=== PATIENT | male | born 1940 | race Caucasian/White ===

== ENCOUNTER 2021-07-25 11:50 | Inpatient (IN) ==
[2021-07-25 13:06] LABS: ABS Eosinophils 0.1 10^3/ul (0-0.6); ABS Lymphocytes 0.4 10^3/ul (1.0-4.8); ABS Monocytes 0.7 10^3/ul (0-0.8); ABS Neutrophils 4.5 10^3/ul (1.5-7.7); Eosinophil % 2.2 %; Hematocrit 27 % (42-52); Hemoglobin 9.1 g/dL (14.0-18.0); Lymphocyte % 6.2 %; Mean Corpuscular HGB Conc 34 g/dL (31-36); Mean Corpuscular Hemoglobin 33 pg (27-31); Mean Corpuscular Volume 98 fL (80-94); Mean Platelet Volume 7.1 fL (7.4-10.4); Platelet Count 169 10^3/uL (150-450); Red Blood Count 2.72 10^6 /uL (4.18-5.48); Red Cell Distribution Width 15 % (10-15); White Blood Count 5.7 10^3/uL (3.5-10.8)
[2021-07-25 13:18] LABS: Activated Partial Thrombo Time 39.3 seconds (26.0-38.0); INR 1.4 (0.86-1.15)
[2021-07-25 13:21] LABS: ALT 13 U/L (7-52); AST 17 U/L (13-39); Albumin 3.1 g/dL (3.2-5.2); Albumin/Globulin Ratio 0.9 (1-3); Alkaline Phosphatase 48 U/L (35-149); Anion Gap 10 mmol/L (2-11); Blood Urea Nitrogen 19 mg/dL (6-24); C Reactive Protein 56.98 mg/L (<8.01); CO2 Carbon Dioxide 19 mmol/L (22-32); Chloride 107 mmol/L (101-111); Globulin 3.3 g/dL (2-4); Glucose 117 mg/dL (70-100); Potassium 4.3 mmol/L (3.5-5.0); Sodium 136 mmol/L (135-145); Total Protein 6.4 g/dL (6.4-8.9); eGFR CKD-EPI 48.6 (>60)
[2021-07-25 13:23] LABS: Troponin I 0.03 ng/mL (<0.03)
[2021-07-25] MEDS ORDERED: Vancomycin 1,000 MG in NS 0.9% 250 ml 250 ML IVPB ONE (16:13)
[2021-07-25] MEDS ORDERED: Morphine 2 MG/ML SYRINGE IV PRN (16:16)
[2021-07-25] MEDS ORDERED: Iodixanol (CONTRAST) 320 MG/ML 100 ML SDV IV ONE (16:24)
[2021-07-25] MEDS ORDERED: Albuterol HFA INHALER 8 gm MDI INH PRN (18:23)
[2021-07-25 18:44] LABS: Rapid COVID-19 Molecular Undetected (Undetected)
[2021-07-25] MEDS ORDERED: NS 0.9% IV SCH (21:00)
[2021-07-25] MEDS ORDERED: NAFCILLIN IV SCH (21:00)
[2021-07-25] MEDS: Mometasone/Formoter 200/5 MDI INH SCH (21:32)
[2021-07-25] MEDS: CMCS:Ranolazine 500 mg TAB ER (NF) PO SCH (22:50)
[2021-07-25] MEDS: DULoxetine DR 20 mg CAP PO SCH (22:50)
[2021-07-25] MEDS: NS 0.9% IV SCH (22:53)
[2021-07-25] MEDS: NAFCILLIN IV SCH (22:53)
[2021-07-26 00:01] LABS: Urine Appearance Clear; Urine Bilirubin Negative (Negative); Urine Blood Negative (Negative); Urine Color Yellow; Urine Glucose Negative (Negative); Urine Ketones Negative (Negative); Urine Nitrite Negative (Negative); Urine Protein Negative (Negative); Urine Specific Gravity 1.031 (1.002-1.030); Urine Urobilinogen Negative (Negative)
[2021-07-26] MEDS: NAFCILLIN IV SCH ×5 (05:01→20:27)
[2021-07-26] MEDS: NS 0.9% IV SCH ×5 (05:01→20:27)
[2021-07-26] MEDS: Aspirin EC 81 mg TAB.EC (enteric coated) PO SCH (09:15)
[2021-07-26] MEDS: Isosorbide Mononit ER 30mg TAB PO SCH (09:16)
[2021-07-26] MEDS: CMCS:Ranolazine 500 mg TAB ER (NF) PO SCH ×2 (09:17→22:35)
[2021-07-26] MEDS: Mometasone/Formoter 200/5 MDI INH SCH ×2 (09:18→19:56)
[2021-07-26] MEDS: SPIRIVA Respimat (tiotropium) 2.5 mcg/inh Inhaler INH SCH (09:21)
[2021-07-26 09:24] LABS: ABS Eosinophils 0.1 10^3/ul (0-0.6); ABS Lymphocytes 0.4 10^3/ul (1.0-4.8); ABS Monocytes 0.7 10^3/ul (0-0.8); ABS Neutrophils 4.4 10^3/ul (1.5-7.7); Eosinophil % 1.8 %; Hematocrit 28 % (42-52); Hemoglobin 9.4 g/dL (14.0-18.0); Lymphocyte % 7.5 %; Mean Corpuscular HGB Conc 34 g/dL (31-36); Mean Corpuscular Hemoglobin 33 pg (27-31); Mean Corpuscular Volume 97 fL (80-94); Mean Platelet Volume 7.3 fL (7.4-10.4); Platelet Count 158 10^3/uL (150-450); Red Blood Count 2.87 10^6 /uL (4.18-5.48); Red Cell Distribution Width 15 % (10-15); White Blood Count 5.7 10^3/uL (3.5-10.8)
[2021-07-26 09:40] LABS: C Reactive Protein 56.65 mg/L (<8.01); Calcium 8.8 mg/dL (8.6-10.3); Potassium 3.7 mmol/L (3.5-5.0)
[2021-07-26] MEDS: DULoxetine DR 20 mg CAP PO SCH (22:35)
[2021-07-27] MEDS: NAFCILLIN IV SCH ×7 (00:53→23:47)
[2021-07-27] MEDS: NS 0.9% IV SCH ×7 (00:53→23:47)
[2021-07-27 06:43] LABS: Hematocrit 26 % (42-52); Hemoglobin 8.6 g/dL (14.0-18.0); Mean Corpuscular HGB Conc 34 g/dL (31-36); Mean Corpuscular Hemoglobin 33 pg (27-31); Mean Corpuscular Volume 98 fL (80-94); Mean Platelet Volume 7.3 fL (7.4-10.4); Platelet Count 143 10^3/uL (150-450); Red Blood Count 2.63 10^6 /uL (4.18-5.48); Red Cell Distribution Width 15 % (10-15); White Blood Count 4.7 10^3/uL (3.5-10.8)
[2021-07-27 06:52] LABS: Calcium 8.3 mg/dL (8.6-10.3); Potassium 3.8 mmol/L (3.5-5.0)
[2021-07-27 06:57] LABS: C Reactive Protein 53.33 mg/L (<8.01); eGFR CKD-EPI 54.9 (>60)
[2021-07-27] MEDS: SPIRIVA Respimat (tiotropium) 2.5 mcg/inh Inhaler INH SCH (09:04)
[2021-07-27] MEDS: Mometasone/Formoter 200/5 MDI INH SCH ×2 (09:05→20:19)
[2021-07-27] MEDS: Aspirin EC 81 mg TAB.EC (enteric coated) PO SCH (09:36)
[2021-07-27] MEDS: HYDROcodone/ACETAMIN 5/325 mg TAB PO PRN ×2 (09:37→18:29)
[2021-07-27] MEDS: Isosorbide Mononit ER 30mg TAB PO SCH (09:37)
[2021-07-27] MEDS: CMCS:Ranolazine 500 mg TAB ER (NF) PO SCH ×2 (09:45→20:17)
[2021-07-27 10:37] LABS: Ferritin 309.5 ng/mL (24-336)
[2021-07-27 16:32] LABS: Hematocrit 27 % (42-52); Hemoglobin 8.8 g/dL (14.0-18.0)
[2021-07-27] MEDS: DULoxetine DR 20 mg CAP PO SCH (20:17)
[2021-07-28] MEDS: NAFCILLIN IV SCH ×6 (03:53→23:48)
[2021-07-28] MEDS: NS 0.9% IV SCH ×6 (03:53→23:48)
[2021-07-28] MEDS: HYDROcodone/ACETAMIN 5/325 mg TAB PO PRN ×4 (03:56→20:47)
[2021-07-28 08:07] LABS: ABS Basophils 0.1 10^3/ul (0-0.2); ABS Eosinophils 0.2 10^3/ul (0-0.6); ABS Lymphocytes 0.4 10^3/ul (1.0-4.8); ABS Monocytes 0.6 10^3/ul (0-0.8); ABS Neutrophils 3.8 10^3/ul (1.5-7.7); Eosinophil % 4.5 %; Hematocrit 26 % (42-52); Lymphocyte % 8.1 %; Mean Corpuscular HGB Conc 34 g/dL (31-36); Mean Corpuscular Hemoglobin 33 pg (27-31); Mean Corpuscular Volume 97 fL (80-94); Platelet Count 145 10^3/uL (150-450); Red Blood Count 2.72 10^6 /uL (4.18-5.48); Red Cell Distribution Width 15 % (10-15); White Blood Count 5.2 10^3/uL (3.5-10.8)
[2021-07-28] MEDS: CMCS:Ranolazine 500 mg TAB ER (NF) PO SCH ×2 (08:38→20:46)
[2021-07-28] MEDS: Isosorbide Mononit ER 30mg TAB PO SCH (08:38)
[2021-07-28] MEDS: Aspirin EC 81 mg TAB.EC (enteric coated) PO SCH (08:38)
[2021-07-28] MEDS: SPIRIVA Respimat (tiotropium) 2.5 mcg/inh Inhaler INH SCH (09:13)
[2021-07-28] MEDS: Mometasone/Formoter 200/5 MDI INH SCH ×2 (09:13→19:34)
[2021-07-28] MEDS ORDERED: Senna TAB 8.6 mg TAB PO PRN (10:19)
[2021-07-28] MEDS: Magnesium Hydroxide LIQ 30 ML UDC PO PRN (10:29)
[2021-07-28] MEDS: DULoxetine DR 20 mg CAP PO SCH (20:46)
[2021-07-29] MEDS: NS 0.9% IV SCH ×6 (03:45→23:13)
[2021-07-29] MEDS: NAFCILLIN IV SCH ×6 (03:45→23:13)
[2021-07-29] MEDS: SPIRIVA Respimat (tiotropium) 2.5 mcg/inh Inhaler INH SCH (09:20)
[2021-07-29] MEDS: Mometasone/Formoter 200/5 MDI INH SCH ×2 (09:20→19:38)
[2021-07-29] MEDS: Polyethylene Glycol 3350 17 GM PACKET PO SCH ×2 (09:23→20:33)
[2021-07-29] MEDS: Magnesium Hydroxide LIQ 30 ML UDC PO PRN (09:24)
[2021-07-29] MEDS: Aspirin EC 81 mg TAB.EC (enteric coated) PO SCH (09:25)
[2021-07-29] MEDS: Isosorbide Mononit ER 30mg TAB PO SCH (09:25)
[2021-07-29] MEDS: HYDROcodone/ACETAMIN 5/325 mg TAB PO PRN ×2 (09:26→15:05)
[2021-07-29] MEDS: CMCS:Ranolazine 500 mg TAB ER (NF) PO SCH ×2 (09:27→20:30)
[2021-07-29 13:31] LABS: Calcium 8.6 mg/dL (8.6-10.3); Potassium 3.3 mmol/L (3.5-5.0); eGFR CKD-EPI 52.5 (>60)
[2021-07-29] MEDS ORDERED: Sodium Phosphate ADULT ENEMA 133 ML BTL PR PRN (14:19)
[2021-07-29] MEDS: Lidocaine PATCH 5% PATCH TRANSDERM SCH (15:06)
[2021-07-29] MEDS: DULoxetine DR 20 mg CAP PO SCH (20:30)
[2021-07-29] MEDS ORDERED: Lidocaine Patch REMOVE NOTE PATCH OFF SCH (21:00)
[2021-07-29] MEDS ORDERED: Senna TAB 8.6 mg TAB PO SCH (21:00)
[2021-07-30] MEDS: NS 0.9% IV SCH ×3 (04:20→12:01)
[2021-07-30] MEDS: NAFCILLIN IV SCH ×3 (04:20→12:01)
[2021-07-30] MEDS: Polyethylene Glycol 3350 17 GM PACKET PO SCH (08:22)
[2021-07-30] MEDS: Aspirin EC 81 mg TAB.EC (enteric coated) PO SCH (08:30)
[2021-07-30] MEDS: CMCS:Ranolazine 500 mg TAB ER (NF) PO SCH (08:30)
[2021-07-30] MEDS: Isosorbide Mononit ER 30mg TAB PO SCH (08:30)
[2021-07-30] MEDS: Lidocaine PATCH 5% PATCH TRANSDERM SCH (08:31)
[2021-07-30] MEDS: HYDROcodone/ACETAMIN 5/325 mg TAB PO PRN (08:42)
[2021-07-30] MEDS: Mometasone/Formoter 200/5 MDI INH SCH (09:13)
[2021-07-30] MEDS: SPIRIVA Respimat (tiotropium) 2.5 mcg/inh Inhaler INH SCH (09:13)
[2021-07-30 11:25] VITALS: BP 143/50
== END 2021-07-30 13:45 | disposition home or self-care (01) | DRG 541 ==
LOC: ED 11:50 → SUATTDRO 17:47 → EDHOLD 17:47 → SSU 19:44
PROVIDERS: ADMIT Internal Medicine; ATTEND Family Medicine

== ENCOUNTER 2021-08-19 12:22 | Inpatient (IN) ==
[2021-08-19 15:20] LABS: Albumin 3.3 g/dL (3.2-5.2); Albumin/Globulin Ratio 1.2 (1-3); C Reactive Protein 51.93 mg/L (<8.01); Calcium 8.8 mg/dL (8.6-10.3); Globulin 2.8 g/dL (2-4); Potassium 3.4 mmol/L (3.5-5.0); Total Bilirubin 1.2 mg/dL (0.2-1.0); Total Protein 6.1 g/dL (6.4-8.9); eGFR CKD-EPI 32.9 (>60)
[2021-08-19 15:23] LABS: ABS Basophils 0.1 10^3/ul (0-0.2); ABS Lymphocytes 0.3 10^3/ul (1.0-4.8); ABS Monocytes 0.6 10^3/ul (0-0.8); ABS Neutrophils 4.1 10^3/ul (1.5-7.7); Eosinophil % 0.8 %; Hematocrit 30 % (42-52); Hemoglobin 9.9 g/dL (14.0-18.0); Lymphocyte % 6.2 %; Mean Corpuscular HGB Conc 33 g/dL (31-36); Mean Corpuscular Hemoglobin 33 pg (27-31); Mean Corpuscular Volume 100 fL (80-94); Mean Platelet Volume 6.6 fL (7.4-10.4); Nucleated Red Blood Cells % 0.1; Platelet Count 164 10^3/uL (150-450); Red Blood Count 2.99 10^6 /uL (4.18-5.48); Red Cell Distribution Width 18 % (10-15); White Blood Count 5.2 10^3/uL (3.5-10.8)
[2021-08-19] MEDS ORDERED: Lactated Ringers 1000 ml BAG 1,000 ML IV ONE (15:29)
[2021-08-19 18:23] LABS: Urine Appearance Clear; Urine Bilirubin Negative (Negative); Urine Blood Negative (Negative); Urine Color Amber; Urine Glucose Negative (Negative); Urine Ketones Negative (Negative); Urine Nitrite Negative (Negative); Urine Protein 2+(100 mg/dL) (Negative); Urine Specific Gravity 1.023 (1.002-1.030); Urine Urobilinogen Negative (Negative)
[2021-08-19 18:31] LABS: Urine Bacteria Absent (Absent); Urine Red Blood Cell Absent (Absent); Urine Squamous Epithelial Cell Present (Absent); Urine White Blood Cell Trace(0-5/hpf) (Absent)
[2021-08-20 02:41] LABS: PCO2 Arterial 35 mmHg (35-45)
[2021-08-20 02:50] LABS: PO2 Arterial 43 mmHg (80-100)
[2021-08-20] MEDS ORDERED: Furosemide 40 mg/4 ml IV VIAL IV ONE (02:56)
[2021-08-20] MEDS ORDERED: Albuterol HFA INHALER 8 gm MDI INH PRN (03:35)
[2021-08-20 05:32] LABS: ABS Basophils 0.1 10^3/ul (0-0.2); ABS Eosinophils 0.1 10^3/ul (0-0.6); ABS Lymphocytes 0.4 10^3/ul (1.0-4.8); ABS Monocytes 0.6 10^3/ul (0-0.8); ABS Neutrophils 3.8 10^3/ul (1.5-7.7); Eosinophil % 1.1 %; Hematocrit 32 % (42-52); Hemoglobin 10.3 g/dL (14.0-18.0); Mean Corpuscular HGB Conc 33 g/dL (31-36); Mean Corpuscular Hemoglobin 33 pg (27-31); Mean Corpuscular Volume 100 fL (80-94); Mean Platelet Volume 6.4 fL (7.4-10.4); Platelet Count 151 10^3/uL (150-450); Red Blood Count 3.15 10^6 /uL (4.18-5.48); Red Cell Distribution Width 19 % (10-15); White Blood Count 4.9 10^3/uL (3.5-10.8)
[2021-08-20 05:49] LABS: Urine Creatinine 23.47 mg/dL; Urine Microalbumin/Creatinine 157.6 (<31)
[2021-08-20 06:01] LABS: Albumin 3.2 g/dL (3.2-5.2); Calcium 8.9 mg/dL (8.6-10.3); Magnesium 2.2 mg/dL (1.9-2.7); Potassium 3.5 mmol/L (3.5-5.0); Total Bilirubin 1.4 mg/dL (0.2-1.0)
[2021-08-20 06:07] LABS: Albumin/Globulin Ratio 1.1 (1-3); Globulin 2.9 g/dL (2-4); Total Protein 6.1 g/dL (6.4-8.9); eGFR CKD-EPI 36.4 (>60)
[2021-08-20 06:23] LABS: Free T3 1.9 pg/mL (2.5-3.9)
[2021-08-20 06:25] LABS: Free T4 0.85 ng/dL (0.61-1.12)
[2021-08-20] MEDS ORDERED: NS 0.9% IV SCH ×4 (06:45→10:00)
[2021-08-20] MEDS ORDERED: NAFCILLIN IV SCH ×4 (06:45→10:00)
[2021-08-20] MEDS: Lidocaine PATCH 5% PATCH TRANSDERM SCH (07:55)
[2021-08-20] MEDS: DULoxetine DR 20 mg CAP PO SCH (07:55)
[2021-08-20] MEDS: Aspirin EC 81 mg TAB.EC (enteric coated) PO SCH (07:55)
[2021-08-20] MEDS: Mometasone/Formoter 200/5 MDI INH SCH ×2 (07:59→19:17)
[2021-08-20] MEDS: SPIRIVA Respimat (tiotropium) 2.5 mcg/inh Inhaler INH SCH (08:00)
[2021-08-20 08:42] LABS: Direct Bilirubin 0.6 mg/dL (0.03-0.18); Indirect Bilirubin 0.8 mg/dL (0.3-1.0)
[2021-08-20] MEDS ORDERED: Iodixanol (CONTRAST) 320 MG/ML 100 ML SDV IV ONE (12:06)
[2021-08-20] MEDS ORDERED: oxyCODONE/Acetamin 5/325 mg TAB PO PRN (13:14)
[2021-08-20] MEDS ORDERED: ceFAZolin 2 GM in NS PREMIX 2 GM/100 ML BAG IVPB SCH (14:00)
[2021-08-20] MEDS ORDERED: ceFAZolin 2 GM PREMIX 2 GM/50 ML BAG IVPB SCH (14:30)
[2021-08-20] MEDS: ceFAZolin 2 GM PREMIX 2 GM/50 ML BAG IVPB SCH ×2 (15:32→22:23)
[2021-08-21 04:39] LABS: ABS Eosinophils 0.1 10^3/ul (0-0.6); ABS Lymphocytes 0.4 10^3/ul (1.0-4.8); ABS Monocytes 0.8 10^3/ul (0-0.8); ABS Neutrophils 3.8 10^3/ul (1.5-7.7); Eosinophil % 1.4 %; Hematocrit 28 % (42-52); Hemoglobin 9.3 g/dL (14.0-18.0); Mean Corpuscular HGB Conc 33 g/dL (31-36); Mean Corpuscular Hemoglobin 33 pg (27-31); Mean Corpuscular Volume 100 fL (80-94); Mean Platelet Volume 6.5 fL (7.4-10.4); Platelet Count 111 10^3/uL (150-450); Red Blood Count 2.83 10^6 /uL (4.18-5.48); Red Cell Distribution Width 18 % (10-15); White Blood Count 5.1 10^3/uL (3.5-10.8)
[2021-08-21 05:09] LABS: Albumin 2.9 g/dL (3.2-5.2); Albumin/Globulin Ratio 1.2 (1-3); Calcium 8.4 mg/dL (8.6-10.3); Globulin 2.5 g/dL (2-4); Total Bilirubin 1.1 mg/dL (0.2-1.0); Total Protein 5.4 g/dL (6.4-8.9); eGFR CKD-EPI 39.9 (>60)
[2021-08-21] MEDS: ceFAZolin 2 GM PREMIX 2 GM/50 ML BAG IVPB SCH ×3 (05:57→21:46)
[2021-08-21] MEDS ORDERED: Potassium Chlor 20 meq TAB.ER PO ONE ×2 (06:26→08:27)
[2021-08-21] MEDS ORDERED: Furosemide 40 mg/4 ml IV VIAL IV SLOW PU ONE (07:00)
[2021-08-21] MEDS: DULoxetine DR 20 mg CAP PO SCH (08:35)
[2021-08-21] MEDS: Lidocaine PATCH 5% PATCH TRANSDERM SCH (08:35)
[2021-08-21] MEDS: Aspirin EC 81 mg TAB.EC (enteric coated) PO SCH (08:35)
[2021-08-21] MEDS: SPIRIVA Respimat (tiotropium) 2.5 mcg/inh Inhaler INH SCH (08:42)
[2021-08-21] MEDS: Mometasone/Formoter 200/5 MDI INH SCH ×2 (08:42→20:10)
[2021-08-21] MEDS ORDERED: Iodixanol (CONTRAST) 320 MG/ML 100 ML SDV IV ONE (14:49)
[2021-08-21] MEDS ORDERED: ceFAZolin 2 GM PREMIX 2 GM/50 ML BAG IVPB SCH (18:00)
[2021-08-22 05:02] LABS: Hematocrit 28 % (42-52); Hemoglobin 9.4 g/dL (14.0-18.0); Mean Corpuscular HGB Conc 33 g/dL (31-36); Mean Corpuscular Hemoglobin 33 pg (27-31); Mean Corpuscular Volume 98 fL (80-94); Mean Platelet Volume 6.9 fL (7.4-10.4); Platelet Count 105 10^3/uL (150-450); Red Cell Distribution Width 18 % (10-15); White Blood Count 5.7 10^3/uL (3.5-10.8)
[2021-08-22 05:27] LABS: Calcium 8.6 mg/dL (8.6-10.3); Magnesium 1.8 mg/dL (1.9-2.7); Potassium 3.4 mmol/L (3.5-5.0); eGFR CKD-EPI 47.8 (>60)
[2021-08-22] MEDS ORDERED: Furosemide 40 mg/4 ml IV VIAL IV SLOW PU ONE (06:00)
[2021-08-22] MEDS: ceFAZolin 2 GM PREMIX 2 GM/50 ML BAG IVPB SCH (06:02)
[2021-08-22] MEDS ORDERED: Magnesium Sulfate 2 gm BAG 2 GM/50 ML BAG IVPB ONE (06:40)
[2021-08-22] MEDS ORDERED: Potassium Chlor 20 meq TAB.ER PO ONE ×2 (06:41→08:40)
[2021-08-22] MEDS ORDERED: Furosemide 20 mg/2 ml IV VIAL IV SLOW PU ONE (08:59)
[2021-08-22 09:36] LABS: C Reactive Protein 55.49 mg/L (<8.01)
[2021-08-22] MEDS: Lidocaine PATCH 5% PATCH TRANSDERM SCH (09:51)
[2021-08-22] MEDS: Aspirin EC 81 mg TAB.EC (enteric coated) PO SCH (09:53)
[2021-08-22] MEDS: DULoxetine DR 20 mg CAP PO SCH (09:53)
[2021-08-22] MEDS: Mometasone/Formoter 200/5 MDI INH SCH ×2 (10:54→20:11)
[2021-08-22] MEDS: SPIRIVA Respimat (tiotropium) 2.5 mcg/inh Inhaler INH SCH (10:54)
[2021-08-22 16:23] LABS: Body Fluid Appearance Clear; Body Fluid Color Yellow; Body Fluid Source Pleural Fluid
[2021-08-22 18:26] LABS: Body Fluid Mono 30 %; Body Fluid Other Cells 26; Body Fluid Total Cells Counted 200
[2021-08-22 18:27] LABS: Body Fluid WBC 160 /mcL
[2021-08-22] MEDS ORDERED: ceFAZolin 2 GM in NS 100 MLS Q8H (Pharmacy Admix) IVPB SCH (22:00)
[2021-08-23 05:51] LABS: Hematocrit 29 % (42-52); Hemoglobin 9.4 g/dL (14.0-18.0); Mean Corpuscular HGB Conc 33 g/dL (31-36); Mean Corpuscular Hemoglobin 33 pg (27-31); Mean Corpuscular Volume 99 fL (80-94); Red Blood Count 2.89 10^6 /uL (4.18-5.48); Red Cell Distribution Width 17 % (10-15); White Blood Count 6.5 10^3/uL (3.5-10.8)
[2021-08-23 05:53] LABS: ABS Basophils 0.1 10^3/ul (0-0.2); ABS Eosinophils 0.1 10^3/ul (0-0.6); ABS Lymphocytes 0.5 10^3/ul (1.0-4.8); ABS Neutrophils 4.9 10^3/ul (1.5-7.7); Eosinophil % 2.2 %; Lymphocyte % 7.2 %
[2021-08-23 05:57] LABS: Calcium 8.6 mg/dL (8.6-10.3); Potassium 3.7 mmol/L (3.5-5.0); eGFR CKD-EPI 55.9 (>60)
[2021-08-23] MEDS ORDERED: Furosemide 40 mg/4 ml IV VIAL IV SLOW PU ONE (06:00)
[2021-08-23] MEDS ORDERED: Potassium Chlor 20 meq TAB.ER PO ONE (06:47)
[2021-08-23] MEDS: Aspirin EC 81 mg TAB.EC (enteric coated) PO SCH (07:56)
[2021-08-23] MEDS: Lidocaine PATCH 5% PATCH TRANSDERM SCH (07:56)
[2021-08-23] MEDS: DULoxetine DR 20 mg CAP PO SCH (07:56)
[2021-08-23] MEDS: SPIRIVA Respimat (tiotropium) 2.5 mcg/inh Inhaler INH SCH (08:22)
[2021-08-23] MEDS: Mometasone/Formoter 200/5 MDI INH SCH ×2 (08:25→20:30)
[2021-08-23 09:03] LABS: Platelet Count 97 10^3/uL (150-450)
[2021-08-23 09:43] LABS: INR 1.63 (0.86-1.15)
[2021-08-23 13:35] LABS: Lactate Dehydrogenase, BF 100 U/L
[2021-08-23 14:09] LABS: Folate 3.4 ng/mL (5.90-24.80)
[2021-08-23 15:56] LABS: Glucose, BF 133 mg/dL
[2021-08-23 15:59] LABS: Fluid Type, Protein, Total PLEURAL; Total Protein, BF 1.2 g/dL
[2021-08-24] MEDS ORDERED: Furosemide 40 mg/4 ml IV VIAL IV SLOW PU ONE (06:00)
[2021-08-24 06:09] LABS: ABS Basophils 0.1 10^3/ul (0-0.2); ABS Eosinophils 0.1 10^3/ul (0-0.6); ABS Lymphocytes 0.4 10^3/ul (1.0-4.8); ABS Monocytes 0.8 10^3/ul (0-0.8); ABS Neutrophils 4.7 10^3/ul (1.5-7.7); Eosinophil % 2.3 %; Hematocrit 29 % (42-52); Hemoglobin 9.8 g/dL (14.0-18.0); Lymphocyte % 6.3 %; Mean Corpuscular HGB Conc 33 g/dL (31-36); Mean Corpuscular Hemoglobin 33 pg (27-31); Mean Corpuscular Volume 98 fL (80-94); Nucleated Red Blood Cells % 0.1; Platelet Count 89 10^3/uL (150-450); Red Blood Count 2.99 10^6 /uL (4.18-5.48); Red Cell Distribution Width 18 % (10-15); White Blood Count 6.1 10^3/uL (3.5-10.8)
[2021-08-24 06:32] LABS: Calcium 8.6 mg/dL (8.6-10.3); Magnesium 1.8 mg/dL (1.9-2.7); Potassium 3.8 mmol/L (3.5-5.0); eGFR CKD-EPI 61.5 (>60)
[2021-08-24] MEDS ORDERED: Magnesium Sulfate 2 gm BAG 2 GM/50 ML BAG IVPB ONE (06:57)
[2021-08-24] MEDS: Mometasone/Formoter 200/5 MDI INH SCH ×2 (08:12→19:39)
[2021-08-24] MEDS: SPIRIVA Respimat (tiotropium) 2.5 mcg/inh Inhaler INH SCH (08:13)
[2021-08-24] MEDS: DULoxetine DR 20 mg CAP PO SCH (08:46)
[2021-08-24] MEDS: Lidocaine PATCH 5% PATCH TRANSDERM SCH (08:46)
[2021-08-24] MEDS: Aspirin EC 81 mg TAB.EC (enteric coated) PO SCH (08:47)
[2021-08-24] MEDS: Magnesium Hydroxide LIQ 30 ML UDC PO PRN (14:08)
[2021-08-24] MEDS ORDERED: NS 0.9% 1000 ml BAG 1,000 ML IV SCH (20:15)
[2021-08-24 20:47] LABS: ABS Basophils 0.1 10^3/ul (0-0.2); ABS Eosinophils 0.2 10^3/ul (0-0.6); ABS Lymphocytes 0.4 10^3/ul (1.0-4.8); ABS Monocytes 0.8 10^3/ul (0-0.8); ABS Neutrophils 4.3 10^3/ul (1.5-7.7); Hematocrit 31 % (42-52); Lymphocyte % 6.6 %; Mean Corpuscular HGB Conc 32 g/dL (31-36); Mean Corpuscular Hemoglobin 32 pg (27-31); Mean Corpuscular Volume 99 fL (80-94); Mean Platelet Volume 7.1 fL (7.4-10.4); Nucleated Red Blood Cells % 0.1; Platelet Count 97 10^3/uL (150-450); Red Blood Count 3.13 10^6 /uL (4.18-5.48); Red Cell Distribution Width 18 % (10-15); White Blood Count 5.7 10^3/uL (3.5-10.8)
[2021-08-24 20:52] LABS: Activated Partial Thrombo Time 34.9 seconds (26.0-38.0); INR 1.34 (0.86-1.15)
[2021-08-24] MEDS: Senna TAB 8.6 mg TAB PO PRN (20:53)
[2021-08-24 21:09] LABS: Urine Appearance Clear; Urine Bacteria Absent (Absent); Urine Bilirubin Negative (Negative); Urine Blood Negative (Negative); Urine Color Yellow; Urine Glucose Negative (Negative); Urine Ketones Negative (Negative); Urine Nitrite Negative (Negative); Urine Protein Negative (Negative); Urine Red Blood Cell Trace(0-2/hpf) (Absent); Urine Urobilinogen Negative (Negative); Urine White Blood Cell Trace(0-5/hpf) (Absent)
[2021-08-24 21:26] LABS: Albumin/Globulin Ratio 1.3 (1-3); C Reactive Protein 48.38 mg/L (<8.01); Calcium 8.6 mg/dL (8.6-10.3); Globulin 2.4 g/dL (2-4); Potassium 3.9 mmol/L (3.5-5.0); Total Protein 5.4 g/dL (6.4-8.9); eGFR CKD-EPI 59.7 (>60)
[2021-08-25 04:53] LABS: Hematocrit 29 % (42-52); Hemoglobin 9.6 g/dL (14.0-18.0); Mean Corpuscular HGB Conc 33 g/dL (31-36); Mean Corpuscular Hemoglobin 33 pg (27-31); Mean Corpuscular Volume 101 fL (80-94); Mean Platelet Volume 7.9 fL (7.4-10.4); Platelet Count 107 10^3/uL (150-450); Red Blood Count 2.88 10^6 /uL (4.18-5.48); Red Cell Distribution Width 19 % (10-15); White Blood Count 6.1 10^3/uL (3.5-10.8)
[2021-08-25 05:05] LABS: Calcium 8.3 mg/dL (8.6-10.3); Potassium 3.6 mmol/L (3.5-5.0)
[2021-08-25 05:11] LABS: eGFR CKD-EPI 67.5 (>60)
[2021-08-25] MEDS ORDERED: Furosemide 40 mg/4 ml IV VIAL IV SLOW PU ONE (06:00)
[2021-08-25] MEDS ORDERED: Potassium Chlor 20 meq TAB.ER PO ONE (06:50)
[2021-08-25] MEDS: SPIRIVA Respimat (tiotropium) 2.5 mcg/inh Inhaler INH SCH (07:48)
[2021-08-25] MEDS: Mometasone/Formoter 200/5 MDI INH SCH ×2 (07:51→19:47)
[2021-08-25] MEDS: Lidocaine PATCH 5% PATCH TRANSDERM SCH (09:42)
[2021-08-25] MEDS: DULoxetine DR 20 mg CAP PO SCH (09:43)
[2021-08-25] MEDS: Aspirin EC 81 mg TAB.EC (enteric coated) PO SCH (09:43)
[2021-08-26 05:58] LABS: ABS Eosinophils 0.1 10^3/ul (0-0.6); ABS Lymphocytes 0.4 10^3/ul (1.0-4.8); ABS Monocytes 0.9 10^3/ul (0-0.8); ABS Neutrophils 4.7 10^3/ul (1.5-7.7); Eosinophil % 2.1 %; Hematocrit 28 % (42-52); Hemoglobin 9.1 g/dL (14.0-18.0); Mean Corpuscular HGB Conc 33 g/dL (31-36); Mean Corpuscular Hemoglobin 33 pg (27-31); Mean Corpuscular Volume 100 fL (80-94); Platelet Count 100 10^3/uL (150-450); Red Blood Count 2.77 10^6 /uL (4.18-5.48); Red Cell Distribution Width 19 % (10-15); White Blood Count 6.2 10^3/uL (3.5-10.8)
[2021-08-26 06:15] LABS: Calcium 8.4 mg/dL (8.6-10.3); Magnesium 1.8 mg/dL (1.9-2.7); Potassium 4.1 mmol/L (3.5-5.0); eGFR CKD-EPI 61.5 (>60)
[2021-08-26] MEDS: SPIRIVA Respimat (tiotropium) 2.5 mcg/inh Inhaler INH SCH (07:58)
[2021-08-26] MEDS: Mometasone/Formoter 200/5 MDI INH SCH ×2 (08:00→19:30)
[2021-08-26] MEDS: DULoxetine DR 20 mg CAP PO SCH (08:08)
[2021-08-26] MEDS: Lidocaine PATCH 5% PATCH TRANSDERM SCH (08:08)
[2021-08-26] MEDS: Aspirin EC 81 mg TAB.EC (enteric coated) PO SCH (08:10)
[2021-08-26] MEDS ORDERED: Furosemide 20 mg/2 ml IV VIAL IV SLOW PU ONE (11:19)
[2021-08-26] MEDS ORDERED: Digoxin IV 0.5 MG/2 ML AMP (0.25 MG/ML) IV SLOW PU ONE (17:00)
[2021-08-27 05:19] LABS: Hematocrit 27 % (42-52); Mean Corpuscular HGB Conc 34 g/dL (31-36); Mean Corpuscular Hemoglobin 34 pg (27-31); Mean Corpuscular Volume 101 fL (80-94); Mean Platelet Volume 7.9 fL (7.4-10.4); Platelet Count 95 10^3/uL (150-450); Red Blood Count 2.66 10^6 /uL (4.18-5.48); Red Cell Distribution Width 18 % (10-15); White Blood Count 5.8 10^3/uL (3.5-10.8)
[2021-08-27 05:37] LABS: Calcium 8.5 mg/dL (8.6-10.3); Magnesium 1.7 mg/dL (1.9-2.7); Potassium 4.2 mmol/L (3.5-5.0); eGFR CKD-EPI 65.4 (>60)
[2021-08-27] MEDS ORDERED: Magnesium Sulfate 2 gm BAG 2 GM/50 ML BAG IVPB ONE (06:35)
[2021-08-27] MEDS: DULoxetine DR 20 mg CAP PO SCH (08:52)
[2021-08-27] MEDS: Aspirin EC 81 mg TAB.EC (enteric coated) PO SCH (08:53)
[2021-08-27] MEDS: Lidocaine PATCH 5% PATCH TRANSDERM SCH (08:53)
[2021-08-27] MEDS: Mometasone/Formoter 200/5 MDI INH SCH ×2 (10:07→19:15)
[2021-08-27] MEDS: SPIRIVA Respimat (tiotropium) 2.5 mcg/inh Inhaler INH SCH (10:07)
[2021-08-27] MEDS ORDERED: Acetaminophen IV 1 GM/100ML 100 ML IV ONE (11:30)
[2021-08-27] MEDS ORDERED: fentaNYL 100 mcg/2 ml 50 MCG/ML VIAL ONE (13:43)
[2021-08-28] MEDS: Mometasone/Formoter 200/5 MDI INH SCH ×2 (07:39→19:20)
[2021-08-28] MEDS: SPIRIVA Respimat (tiotropium) 2.5 mcg/inh Inhaler INH SCH (07:40)
[2021-08-28] MEDS: Lidocaine PATCH 5% PATCH TRANSDERM SCH (07:45)
[2021-08-28] MEDS: DULoxetine DR 20 mg CAP PO SCH (07:45)
[2021-08-28] MEDS: Magnesium Hydroxide LIQ 30 ML UDC PO PRN (07:45)
[2021-08-28] MEDS: Senna TAB 8.6 mg TAB PO PRN (07:46)
[2021-08-28] MEDS: Aspirin EC 81 mg TAB.EC (enteric coated) PO SCH (07:46)
[2021-08-28] MEDS: Magnesium Hydroxide LIQ 30 ML UDC PO SCH ×2 (11:42→21:04)
[2021-08-28 14:02] LABS: C Reactive Protein 18.96 mg/L (<8.01)
[2021-08-28] MEDS ORDERED: Magnesium Sulf 4 GM/100 ML IV 4,000 MG/100 ML BAG IVPB ONE (16:00)
[2021-08-29 07:09] LABS: ABS Basophils 0.1 10^3/ul (0-0.2); ABS Eosinophils 0.1 10^3/ul (0-0.6); ABS Lymphocytes 0.4 10^3/ul (1.0-4.8); ABS Monocytes 0.8 10^3/ul (0-0.8); ABS Neutrophils 5.2 10^3/ul (1.5-7.7); Eosinophil % 1.9 %; Hematocrit 29 % (42-52); Hemoglobin 9.3 g/dL (14.0-18.0); Lymphocyte % 6.6 %; Mean Corpuscular HGB Conc 32 g/dL (31-36); Mean Corpuscular Hemoglobin 33 pg (27-31); Mean Corpuscular Volume 103 fL (80-94); Mean Platelet Volume 8.6 fL (7.4-10.4); Platelet Count 111 10^3/uL (150-450); Red Blood Count 2.81 10^6 /uL (4.18-5.48); Red Cell Distribution Width 19 % (10-15); White Blood Count 6.6 10^3/uL (3.5-10.8)
[2021-08-29] MEDS: SPIRIVA Respimat (tiotropium) 2.5 mcg/inh Inhaler INH SCH (07:19)
[2021-08-29] MEDS: Mometasone/Formoter 200/5 MDI INH SCH ×2 (07:19→20:11)
[2021-08-29 07:40] LABS: Calcium 8.7 mg/dL (8.6-10.3); Magnesium 1.9 mg/dL (1.9-2.7); Potassium 4.4 mmol/L (3.5-5.0); eGFR CKD-EPI 69.8 (>60)
[2021-08-29] MEDS: Magnesium Hydroxide LIQ 30 ML UDC PO SCH (08:00)
[2021-08-29] MEDS: DULoxetine DR 20 mg CAP PO SCH (08:00)
[2021-08-29] MEDS: Aspirin EC 81 mg TAB.EC (enteric coated) PO SCH (08:02)
[2021-08-29] MEDS: Lidocaine PATCH 5% PATCH TRANSDERM SCH (08:03)
[2021-08-29 12:31] VITALS: BP 105/74
[2021-09-02 10:05] LABS: ActiTest Interpretation no activity; Alanine Aminotransferase (ALT) 13 U/L (7-55); Alpha-2-Macroglobulin, S 222 mg/dL (100 - 280); Apolipoprotein A1, S 102 mg/dL (>=120); Bilirubin, Total, S 0.6 mg/dL (<=1.2); BioPredictive Serial Number 3773365; FibroTest Interpretation advanced fibrosis; Gamma Glutamyltransferase GGT 28 U/L (8 - 61); Haptoglobin, S 113 mg/dL (30 - 200)
== END 2021-08-29 16:20 | disposition home health service (06) | DRG 70 ==
LOC: ED 12:22 → EDHOLD 19:31 → SUATTDRO 19:31 → MED 23:17
PROVIDERS: ADMIT Internal Medicine; ATTEND Internal Medicine